=== PATIENT | male | born 2000 | race African-American/Black ===

== ENCOUNTER 2019-05-20 11:33 | Emergency (ER) | payer SELFPAY ==
[~2019-05-20] VITALS: Ht 180.3 cm; Wt 56.8 kg
[2019-05-20 11:44] VITALS: Ht 180.3 cm; Wt 56.8 kg
[2019-05-20] MEDS ORDERED: XOFLUZA40 MG PO (12:27)
[2019-05-20 12:34] LABS: BASOPHILS 0.2 % (0-2); EOSINOPHILS 0.4 % (0-7); HEMATOCRIT 39.2 % (42.0-54.0); HEMOGLOBIN 13.5 g/dL (13.5-17.5); IMMATURE GRANULOCYTES 0.3 % (0-5); LYMPHOCYTES 17.2 % (15-50); MCH 30.7 pg (26.0-34.0); MCHC 34.4 g/dL (31.0-37.0); MCV 89.1 fL (80.0-100.0); MEAN PLATELET VOLUME 11.4 fL (7.4-10.4); MONOCYTES 9.9 % (2-11); PLATELET COUNT 199 10x3/uL (130-400); RDW 13.5 % (11.5-14.5); WBC 10.2 10x3/uL (4.8-10.8)
[2019-05-20 12:45] LABS: CALC OSMOLALITY 259 mosm/kg (275-300); CALCIUM 8.6 mg/dL (8.5-10.1); CARBON DIOXIDE 33.1 mmol/L (21.0-32.0); CHLORIDE - SERUM 93 mmol/L (98-107); CREATININE - SERUM 0.9 mg/dL (0.6-1.3); GLUCOSE 89 mg/dL (74-106); POTASSIUM - SERUM 3.2 mmol/L (3.5-5.1); SODIUM 131 mmol/L (136-145); UREA NITROGEN 7 mg/dL (7-18); eGFR NON AFRICAN AMERICAN > 90 mL/min (90-120)
[2019-05-20 13:55] VITALS: BP 115/68
== END 2019-05-20 13:57 | disposition home or self-care (01) ==
LOC: D.ER 11:33
PROVIDERS: Emergency Medicine
DX: J11.1 Influenza due to unidentified influenza virus with other respiratory manifestations (principal); E87.6 Hypokalemia; E87.1 Hypo-osmolality and hyponatremia; R03.0 Elevated blood-pressure reading, without diagnosis of hypertension; R51 Headache